=== PATIENT | female | born 1950 | race Two or more races ===

== ENCOUNTER 2018-04-23 22:10 | Emergency (ER) | payer OTHER ==
[~2018-04-23] VITALS: Ht 157.5 cm; Wt 113.4 kg
--- NOTE | 2018-04-23 22:40 | NUR ---
ELDER spoke with pt, took her report and left.
--- NOTE | 2018-04-23 22:44 | NUR ---
Attempted to do visual acuity but pt declined.
--- NOTE | 2018-04-23 23:02 | NUR ---
Dr. Siva CAMP MD at bedside.
--- NOTE | 2018-04-23 23:04 | NUR ---
Set up woodslamp, fluorescein strip & tetracaine drops per MD verbal order.
[2018-04-23] MEDS ORDERED: TETRACAINE HCL 0.5% OPHT DROP 2 ML BOTTLE ONE (23:06)
[2018-04-23] MEDS ORDERED: FLUORESCEIN SODIUM 1 MG STRIP ONE (23:06)
--- NOTE | 2018-04-23 23:14 | NUR ---
Pt is refusing eye exam by MD. Pt states "I don't want anything done on my eyes."
[2018-04-23] MEDS ORDERED: FLUORESCEIN SODIUM 1 MG STRIP OP ONE (23:30)
[2018-04-23] MEDS ORDERED: TETRACAINE HCL 0.5% OPHT DROP 2 ML BOTTLE OP ONE (23:30)
--- NOTE | 2018-04-23 23:34 | NUR ---
Patient discharged to home in stable conditon with son. Written and verbal after care instructions given. Patient verbalizes understanding of instructions. Pt ambulated out of ER with steady gait.
== END 2018-04-23 23:35 | disposition home or self-care (01) ==
LOC: ER 22:12
DX: T59.91XA Toxic effect of unspecified gases, fumes and vapors, accidental (unintentional), initial encounter (principal); F99 Mental disorder, not otherwise specified; E03.9 Hypothyroidism, unspecified; Z88.0 Allergy status to penicillin; X58.XXXA Exposure to other specified factors, initial encounter; Y93.89 Activity, other specified; Y92.89 Other specified places as the place of occurrence of the external cause; Y99.8 Other external cause status
CPT/HCPCS: A4663